=== PATIENT | male | born 1950 | race Caucasian/White ===

== ENCOUNTER 2022-04-24 13:20 | Emergency (ER) | payer OTHER ==
[~2022-04-24] VITALS: Ht 188 cm; Wt 133.8 kg
[2022-04-24 13:28] VITALS: BP 151/124
[2022-04-24 13:32] VITALS: BP 170/90
[2022-04-24 13:46] VITALS: BP 131/92
[2022-04-24 14:01] VITALS: BP 151/88
[2022-04-24 14:16] VITALS: BP 154/86
[2022-04-24 14:17] LABS: URINE BILIRUBIN - DIPSTICK NEGATIVE (NEGATIVE); URINE BLOOD DIPSTICK SMALL (NEGATIVE); URINE COLOR YELLOW; URINE GLUCOSE - DIPSTICK >=1000 mg/dL (NEGATIVE); URINE KETONE NEGATIVE (NEGATIVE); URINE PH 5.5 (4.5-8.0); URINE PROTEIN - DIPSTICK NEGATIVE (NEG-TRACE); URINE SPECIFIC GRAVITY 1.025; URINE UROBILINOGEN - DIPSTICK 0.2 E.U./dL (0.2)
[2022-04-24 14:20] LABS: URINE LEUK ESTERASE SMALL (NEGATIVE); URINE NITRITE - DIPSTICK POSITIVE (Negative)
[2022-04-24 14:27] LABS: URINE BACTERIA FEW hpf; URINE WBC >100 WBC/hpf (0-5)
[2022-04-24] MEDS ORDERED: OMNI-PAC300 MG PO (14:39)
[2022-04-24 14:59] VITALS: BP 154/86
== END 2022-04-24 15:04 | disposition home or self-care (01) | DRG 690 ==
LOC: ED 13:20
PROVIDERS: Family Medicine
DX: N39.0 Urinary tract infection, site not specified (principal); B96.1 Klebsiella pneumoniae [K. pneumoniae] as the cause of diseases classified elsewhere